=== PATIENT | female | born 1960 ===

== ENCOUNTER 2020-10-02 07:24 | Day surgery (SDC) | payer OTHER | END 2020-10-02 14:10 | disposition home or self-care (01) | LOC: AMB-ENDOS 07:24 | PROVIDERS: ATTEND Surgery | DX: K57.32 Diverticulitis of large intestine without perforation or abscess without bleeding (principal); Z20.828 Contact with and (suspected) exposure to other viral communicable diseases ==

== ENCOUNTER 2021-06-17 11:15 | Inpatient (IN) | payer OTHER ==
[~2021-06-17] VITALS: Ht 157.5 cm; Wt 67.1 kg
[2021-06-17] MEDS ORDERED: SYNTHROID88 MCG PO (12:11)
[2021-06-17] MEDS ORDERED: SINGULAIR10 MG PO (12:12)
[2021-06-17] MEDS ORDERED: PROTONIX20 MG PO (12:12)
[2021-06-17] MEDS ORDERED: CLONAZEPAM0.5 MG PO (12:12)
[2021-06-25] MEDS ORDERED: NORFLEX100MG PO (08:54)
[2021-06-25] MEDS ORDERED: PERCOCET 5-3251 EACH PO (08:54)
[2021-06-25] MEDS ORDERED: INTESTINEX680 M1 PO (08:55)
== END 2021-06-25 12:48 | disposition home or self-care (01) | DRG 331 ==
LOC: SURH 06-22 07:00 → O/R 06-22 09:12 → SURH 06-22 11:15 → SURG 06-22 17:55
PROVIDERS: ADMIT Surgery; ATTEND Surgery
PROC: 0DTN0ZZ Resection of Sigmoid Colon, Open Approach (ICD-10-PCS; 2021-06-22)
PROC: 0DJD8ZZ Inspection of Lower Intestinal Tract, Via Natural or Artificial Opening Endoscopic (ICD-10-PCS; 2021-06-22)
PROC: 4A033R1 Measurement of Arterial Saturation, Peripheral, Percutaneous Approach (ICD-10-PCS; 2021-06-22)
PROC: 4A12X4Z Monitoring of Cardiac Electrical Activity, External Approach (ICD-10-PCS; 2021-06-22)
PROC: 3E0F7SF Introduction of Other Gas into Respiratory Tract, Via Natural or Artificial Opening (ICD-10-PCS; 2021-06-22)
PROC: 0DTP0ZZ Resection of Rectum, Open Approach (ICD-10-PCS; principal; 2021-06-22 07:00)
PROC: 3E0F7GC Introduction of Other Therapeutic Substance into Respiratory Tract, Via Natural or Artificial Opening (ICD-10-PCS; 2021-06-24)
DX: K57.30 Diverticulosis of large intestine without perforation or abscess without bleeding (principal); K57.32 Diverticulitis of large intestine without perforation or abscess without bleeding; N81.6 Rectocele; D64.9 Anemia, unspecified; J45.20 Mild intermittent asthma, uncomplicated; F41.9 Anxiety disorder, unspecified; R06.81 Apnea, not elsewhere classified; E03.8 Other specified hypothyroidism; Z20.822 Contact with and (suspected) exposure to COVID-19